=== PATIENT | male | born 1985 | race Caucasian/White ===

== ENCOUNTER → 2018-06-13 13:02 | Outpatient (CLI) | payer OTHER, SELFPAY ==
--- NOTE | 2018-06-13 13:06 | ECHOD_ITS ---
Reason For Study: Bicuspid AV, Aortic insufficiency Procedure This was a 2D Doppler, Color Flow transthoracic echocardiogram. The exam was of adequate technical quality. Exam performed in department. Left Ventricle Normal LV size. Left ventricular systolic function is normal. The estimated ejection fraction is 60 %. Normal diastology for age. No regional wall motion abnormalities noted. Right Ventricle Normal RV size. Normal systolic function. Atria Normal left atrium. Normal right atrium. No doppler evidence for ASD. Mitral Valve There is no mitral annular calcification. Normal mitral valve. Trivial mitral valve insufficiency. Tricuspid Valve Normal tricuspid valve. Mild tricuspid valve insufficiency. Right ventricular systolic pressure estimated to be 22 mmHg. Aortic Valve Bicuspid aortic valve. Mild focal aortic valve calcification. Mild-Moderate (1-2+) eccentric aortic valve insufficiency. Pulmonic Valve The pulmonic valve is not well visualized. Trivial pulmonic valve insufficiency. Pericardium/Pleural No pericardial effusion. MMode/2D Measurements & Calculations LVIDd: 5.5 cm IVSd: 0.80 cm LVOT diam: 2.5 cm LVIDs: 3.3 cm LVPWd: 1.0 cm LVOT area: 4.8 cm2 RVDd: 3.4 cm FS: 41.1 % Ao root diam: 3.7 cm LAV(MOD-bp): 43.9 ml EDV(MOD-sp4): 131.3 ml LAV(MOD-bp) Indexed: 20.8 ml/m2 ESV(MOD-sp4): 54.7 ml LAV(MOD-sp2): 41.7 ml EF(MOD-sp4): 58.3 % LAV(MOD-sp4): 42.4 ml EDV(MOD-sp2): 165.5 ml SV(MOD-sp4): 76.5 ml SV(MOD-sp2): 99.4 ml EF(MOD-sp2): 60.1 % LA dimension(2D): 2.7 cm LA A4 area: 16.7 cm2 RA A4 area: 15.5 cm2 Doppler Measurements & Calculations MV E max adams: 80.0 cm/sec Lat Peak E' Adams: 16.2 cm/sec Med Peak E' Adams: 11.7 cm/sec MV A max adams: 47.9 cm/sec E/E' lat: 4.9 E/E' med: 6.8 MV E/A: 1.7 Ao V2 max: 150.8 cm/sec LV V1 max: 112.6 cm/sec SV(LVOT): 124.5 ml Ao max P.1 mmHg LV V1 max P.1 mmHg Ao V2 mean: 98.1 cm/sec LV V1 mean P.6 mmHg Ao mean P.4 mmHg LV V1 mean: 76.0 cm/sec Ao V2 VTI: 32.4 cm LV V1 VTI: 26.1 cm DONALD(I,D): 3.8 cm2 DONALD(V,D): 3.6 cm2 PA V2 max: 82.8 cm/sec TR max adams: 217.2 cm/sec TR max P.9 mmHg Interpretation Summary Left ventricular systolic function is normal. The estimated ejection fraction is 60 %. Trivial mitral valve insufficiency. Mild tricuspid valve insufficiency. Bicuspid aortic valve. Mild focal aortic valve calcification. Mild-Moderate (1-2+) eccentric aortic valve insufficiency. Trivial pulmonic valve insufficiency. Right ventricular systolic pressure estimated to be 22 mmHg. Normal diastology for age. 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 Ordering Physician: Toy Ramon/Andrzej Sandoval Referring Physician: oTy Ramon Performed By: Amberly Love RDCS
== END ==
PROVIDERS: Referring Provider Nurse Practitioner Family; Visit Provider Nurse Practitioner Family
DX: Q23.1 Congenital insufficiency of aortic valve (principal); Q25.1 Coarctation of aorta
CPT/HCPCS: 93306

== ENCOUNTER → 2019-01-12 | Outpatient (CLI) | payer OTHER, SELFPAY ==
[2019-01-12 08:39] VITALS: BMI 26.7
[2019-01-12 10:34] LABS: Anion Gap 4 (5-15); BUN 17 mg/dL (7-18); BUN/Creat Ratio 19.4 RATIO (10-20); Calcium,Total 9.1 mg/dL (8.5-10.1); Chloride 109 mmol/L (98-107); Creatinine, Serum 0.88 mg/dL (0.70-1.30); EST Glomerular Filtration Rate 105 mL/min (>60); Est Glom Filt Rate - Afr Amer 127 mL/min (>60); Glucose 96 mg/dL (74-106); Sodium Level 138 mmol/L (136-145)
== END | disposition home or self-care (01) ==
LOC: LAB 09:36
PROVIDERS: Referring Provider Physician Assistant Medical; Visit Provider Physician Assistant Medical
DX: R07.89 Other chest pain (principal)
CPT/HCPCS: 36415; 80048

== ENCOUNTER → 2019-01-23 | Outpatient (CLI) | payer OTHER, SELFPAY ==
[2019-01-12 08:39] VITALS: BMI 26.7
--- NOTE | 2019-01-23 07:50 | CT_ITS ---
STUDY: CTA CHEST REASON FOR EXAM: Male, 33 years old. Chest tightness. History of bicuspid aortic valve. RADIATION DOSAGE (If Supplied By Facility): CTDIvol = ( 12.04 ) mGy, DLP = ( 482.52 ) mGycm TECHNIQUE: The examination was performed with the intravenous administration of 100 IV Isovue 370. Post-processing of the angiographic images was performed, with multiplanar reformation and 3D reconstruction. Individualized dose optimization techniques were used for this CT. COMPARISON: July 30, [address] chest June 10, 2014 FINDINGS: Normal enhancement of the main pulmonary artery and right and left pulmonary arteries. Normal enhancement of the bilateral peripheral pulmonary arteries. There is no demonstrated pulmonary embolism. Normal thoracic aorta and visualized great vessels. There is no demonstrated aortic dissection. Normal heart and pericardium. Normal mediastinum. Normal hilar regions. Normal visualized trachea and bronchi. The lungs are well expanded. Normal pulmonary parenchyma. Normal pleura. Normal chest wall structures. Normal osseous structures. Normal visualized upper abdomen. CT/CTA Chest W/WO Contrast IMPRESSION: Normal CTA chest examination, without a demonstrated pulmonary embolism or arterial dissection. Electronically Signed: Sandip Slater MD at 16:53 EDT , Service support ,
== END | disposition home or self-care (01) ==
PROVIDERS: Referring Provider Physician Assistant Medical; Visit Provider Physician Assistant Medical
DX: R07.89 Other chest pain (principal)
CPT/HCPCS: 71275; Q9967

== ENCOUNTER → 2020-11-03 12:55 | Outpatient (CLI) | payer OTHER, SELFPAY ==
[2020-10-15 11:42] VITALS: BMI 28.3
--- NOTE | 2020-11-03 12:58 | ECHOD_ITS ---
Reason For Study: Bicuspid AV Procedure This was a 2D Doppler, Color Flow transthoracic echocardiogram. The study was technically difficult. Exam performed in department. Left Ventricle Normal LV size. Left ventricular systolic function is normal. The estimated ejection fraction is 60 %. No evidence for diastolic dysfunction. No regional wall motion abnormalities noted. Right Ventricle Normal RV size. Normal systolic function. Atria Normal left atrium. Normal right atrium. No doppler evidence for ASD. Mitral Valve There is no mitral annular calcification. Normal mitral valve. Trivial mitral valve insufficiency. Tricuspid Valve Normal tricuspid valve. Trivial tricuspid valve insufficiency. Unable to estimate RV systolic pressure/pulmonary artery pressure due to technically difficult study. Aortic Valve Based upon the 2D echocardiographic images obtained a bicuspid aortic valve with mild focal aortic valve calcification cannot be excluded. Mild (1+) eccentric aortic valve insufficiency. Pulmonic Valve The pulmonic valve is not well visualized. 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 Pericardium/Pleural No pericardial effusion. MMode/2D Measurements & Calculations LVIDd: 5.6 cm IVSd: 0.83 cm LVOT diam: 2.5 cm LVIDs: 3.0 cm LVPWd: 1.2 cm LVOT area: 5.0 cm2 FS: 45.9 % Ao root diam: 3.8 cm LAV(MOD-bp): 37.9 ml LVAd ap4: 35.8 cm2 LA dimension: 3.5 cm LAV(MOD-bp) Indexed: 17.8 ml/m2 EDV(MOD-sp4): 121.2 ml LAV(MOD-sp2): 34.5 ml EDV(sp4-el): 120.1 ml LAV(MOD-sp4): 35.5 ml LVAs ap4: 20.3 cm2 ESV(MOD-sp4): 43.9 ml ESV(sp4-el): 44.1 ml EF(MOD-sp4): 63.8 % EF(sp4-el): 63.3 % SV(MOD-sp4): 77.3 ml SV(sp4-el): 76.0 ml LA A4 area: 15.5 cm2 RA A4 area: 14.5 cm2 Time Measurements MV dec time: 0.25 sec Doppler Measurements & Calculations MV E max adams: 67.2 cm/sec Lat Peak E' Adams: 12.7 cm/sec Med Peak E' Adams: 9.9 cm/sec MV A max adams: 54.0 cm/sec E/E' lat: 5.3 E/E' med: 6.8 MV E/A: 1.2 MV V2 max: 78.3 cm/sec MV P1/2t max adams: 79.6 cm/sec Ao V2 max: 145.1 cm/sec MV max P.5 mmHg MV P1/2t: 61.0 msec Ao max P.4 mmHg MV V2 mean: 44.5 cm/sec Ao V2 mean: 87.7 cm/sec MV mean P.93 mmHg MV dec slope: 382.1 cm/sec2 Ao mean P.6 mmHg MV V2 VTI: 22.2 cm MVA(P1/2t): 3.6 cm2 Ao V2 VTI: 29.2 cm MVA(VTI): 5.7 cm2 DONALD(I,D): 4.4 cm2 DONALD(V,D): 3.9 cm2 LV V1 max: 114.0 cm/sec SV(LVOT): 127.7 ml LV V1 max P.2 mmHg LV V1 mean P.4 mmHg LV V1 mean: 69.9 cm/sec LV V1 VTI: 25.5 cm ECHO/Echo Complete Interpretation Summary The study was technically difficult. Left ventricular systolic function is normal. The estimated ejection fraction is 60 %. Trivial mitral valve insufficiency. Trivial tricuspid valve insufficiency. Based upon the 2D echocardiographic images obtained a bicuspid aortic valve wit h mild focal aortic valve calcification cannot be excluded. Mild (1+) eccentric aortic valve insufficiency. 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 Unable to estimate RV systolic pressure/pulmonary artery pressure due to techni chun difficult study. No evidence for diastolic dysfunction. Ordering Physician: Andrzej Sandoval Referring Physician: Lyle Ceja Performed By: Berry Gunn RCS
== END ==
PROVIDERS: PCP Family Medicine; Referring Provider Internal Medicine Cardiovascular Disease; Visit Provider Internal Medicine Cardiovascular Disease
DX: Q23.1 Congenital insufficiency of aortic valve (principal); Q25.1 Coarctation of aorta; I10 Essential (primary) hypertension
CPT/HCPCS: 93306

== ENCOUNTER 2020-11-21 10:33 | Emergency (ER) | payer OTHER, SELFPAY ==
[2020-10-15 11:42] VITALS: BMI 28.3
[2020-11-21 10:36] VITALS: BP 127/62; PULSE 78; RESP 16; TEMP 36.4; O2SAT 100; BMI 29.5
--- NOTE | 2020-11-21 10:37 | CT_ITS ---
STUDY: CT BRAIN WITHOUT CONTRAST REASON FOR EXAM: Male, 34 years old. Abrasions to the forehead following injury. RADIATION DOSAGE (If Supplied By Facility): CTDIvol = ( 44.99 ) mGy, DLP = ( 779.24 ) mGycm TECHNIQUE: Transaxial CT imaging of the brain was performed without administration of intravenous contrast material. Individualized dose optimization techniques were used for this CT. COMPARISON: Comparison is made with prior study dated 07/30/2015. FINDINGS: Normal soft tissue structures. Normal calvarium. Normal size ventricles and extra-axial spaces for the patient''s age. Normal white matter tracts of the cerebral hemispheres. Normal basal ganglia and thalami. Normal brainstem. Normal cerebellum. There is no intracranial hemorrhage. There are no findings of an acute ischemic infarction. Normal visualized paranasal sinuses. CT/Brain/Head without Contrast IMPRESSION: Normal unenhanced CT scan of the brain. Electronically Signed: Nhan Cerna MD at 11:04 EDT , Service support ,
--- NOTE | 2020-11-21 10:37 | RAD_ITS ---
STUDY: X-RAY - LEFT KNEE REASON FOR EXAM: Male, 34 years old. Pain following trauma. TECHNIQUE: 4 view(s) of the knee. COMPARISON: None. FINDINGS: Normal visualized distal femur. Normal visualized proximal tibia and fibula. Normal proximal tibiofibular articulation. Normal medial femorotibial compartment. Normal lateral femorotibial compartment. Normal patellofemoral articulation. The soft tissue structures are unremarkable. RAD/Knee 4 or More Views IMPRESSION: Normal x-ray examination of the knee. Electronically Signed: Nhan Cerna MD at 11:12 EDT , Service support ,
--- NOTE | 2020-11-21 10:37 | CT_ITS ---
STUDY: CT LUMBAR SPINE WITHOUT CONTRAST REASON FOR EXAM: Male, 34 years old. Lower back pain following injury. RADIATION DOSAGE (If Supplied By Facility): CTDIvol = ( 14.81 ) mGy, DLP = ( 508.13 ) mGycm TECHNIQUE: The patient was scanned in a multi detector CT scanner. High resolution transaxial imaging was performed. Images were obtained from L1 to S1 vertebral level. Sagittal and coronal images were reconstructed. Individualized dose optimization techniques were used for this CT. COMPARISON: None FINDINGS: Normal lumbar lordosis. There is no substantial scoliosis. Normal vertebrae of the lumbar spine. L1-2: Normal endplates. Normal disc height and morphology. Normal bilateral facet joints. Normal central canal and bilateral lateral recesses. Normal bilateral intervertebral neural foramina. L2-3: Normal endplates. Normal disc height and morphology. Normal bilateral facet joints. Normal central canal and bilateral lateral recesses. Normal bilateral intervertebral neural foramina. L3-4: Normal endplates. Normal disc height and morphology. Normal bilateral facet joints. Normal central canal and bilateral lateral recesses. Normal bilateral intervertebral neural foramina. L4-5: Normal endplates. Normal disc height and morphology. Normal bilateral facet joints. Normal central canal and bilateral lateral recesses. Normal bilateral intervertebral neural foramina. L5-S1: Normal endplates. Normal disc height and morphology. Normal bilateral facet joints. Normal central canal and bilateral lateral recesses. Normal bilateral intervertebral neural foramina. Normal visualized paraspinous soft tissue structures. CT/Spine Lumbar without Contrast IMPRESSION: Normal unenhanced CT examination of the lumbar spine. Electronically Signed: Nhan Cerna MD at 11:08 EDT , Service support ,
--- NOTE | 2020-11-21 10:40 | ED.VIS.GEN ---
History of Present Illness Chief Complaint: Head Injury Informant: Patient Onset: Today Context: Sudden Onset Timing: Continuous Current Severity: Moderate Maximum Severity: Moderate Narrative: The patient is a 34-year-old male was otherwise healthy, history of hypertension, who presents to the emergency department injury. Patient was at work. They were unloading ochoa from a semi-. He states that the gait shifted. It landed on top of him. He fell to the ground. He struck the right side of his head, right posterior shoulder, and right hip and low back. He also landed with his knees twisted underneath him. He did not lose consciousness, but states that he felt lightheaded. He is on baby aspirin daily. He is unsure of his last tetanus. He states the bulk of his pain is in his low back on the right side. Prior similar symptoms: No Recent Illness/Hospitalization: No Past Medical History - Allergies and Home Meds Allergies/Adverse Reactions: Allergies No Known Allergies Allergy (Verified 10/15/20 11:42) Primary Care Physician: [facility] [GROUP OF PHYSICIANS] - Varun Lizama DO [STAFF PHYSICIAN] - Prior records reviewed: Yes Past Medical History: - - Hypertension, bicuspid aortic valve Surgical History: noncontributory Smoking Status: Never smoker Review of Systems General: Denies: Chills, Fever, Sweats Eyes: Denies: Visual changes - bilaterally, Diplopia ENT: Denies: Rhinorrhea, Sore throat Cardiovascular: Denies: Chest pain, Palpitations Respiratory: Denies: Dyspnea, Cough, Dyspnea on exertion Gastrointestinal: Denies: Abdominal pain, Nausea, Vomiting, Diarrhea, Melena, Hematochezia Genitourinary: Denies: Dysuria, Hematuria, Frequency Musculoskeletal: Denies: Back pain, Extremity Pain Skin: Denies: Rash, Wounds Neurological: Denies: Headache, Weakness, Numbness Physical Exam Inital Vital Signs reviewed: Yes General: Well nourished, Well developed, No Acute Distress Head: Normocephalic, Trauma - Superficial abrasion of the upper right forehead. Midface stable. Eyes: Perrl, EOMI ENT: Moist mucous membranes, No rhinorrhea Neck: Supple, Nontender Cardiovascular: Regular rate, Regular rhythm, No murmurs Respiratory: No distress, CTA bilaterally, Chest tenderness - Mild tenderness in the posterior left chest with abrasion. No step-off. Abdomen: Soft, Nontender, Nondistended, Normal bowel sounds Back: Normal Inspection, - - Tender in the right lower lumbar spine. No step-off. Extremities: No edema, Tenderness - Superficial abrasion over right wrist with full range of motion. Abrasion over left knee with tenderness palpation, but extension preserved. Skin: Normal color, No rash Neurological: Alert, Oriented x3, Cranial nerves II-XII grossly intact, Normal Strength, Normal Sensation Psychological: Normal affect, Normal Mood Diagnostic/Tx/Re-eval Clinical Impression(s) from Imaging Studies Brain CT 11/21/20 10:37 IMPRESSION: Normal unenhanced CT scan of the brain. Electronically Signed: Nhan Cerna MD at 11:04 EDT , Service support , Knee X-Ray 11/21/20 10:37 IMPRESSION: Normal x-ray examination of the knee. Electronically Signed: Nhan Cerna MD at 11:12 EDT , Service support , Lumbar Spine CT 11/21/20 10:37 IMPRESSION: Normal unenhanced CT examination of the lumbar spine. Electronically Signed: Nhan Cerna MD at 11:08 EDT , Service support , ADDENDUM: 11/21/20 1132 Chest X-Ray 11/21/20 10:55 IMPRESSION: Normal x-ray examination of the chest. Electronically Signed: Nhan Cerna MD at 11:13 EDT , Service support , - Medical Decision Making Patient presents after work-related trauma. He struck his head but did not lose consciousness. He is very well-appearing. He does have a 0.5 cm laceration of the forehead with no active bleeding. His tetanus is updated. He was given analgesics. He underwent CT of the brain. This was unremarkable for acute process. He underwent CT of the lumbar spine. I did review this, and it was read as negative. However on my review it does appear that he has a nondisplaced transverse process fracture on the right at L5. I did discuss this with the radiologist who agrees. Chest x-ray was unremarkable. Knee x-ray was unremarkable. Patient is feeling mildly better. His small laceration was glued without issue. At this point, he will be placed on work restrictions, given analgesics, and appropriate outpatient follow-up. He is comfortable with this plan of care. Impression 1. 0.5 cm facial laceration 2. L5 right nondisplaced transverse process fracture 3. Right wrist abrasion 4. Left posterior thoracic contusion 5. Left knee abrasion ED Disposition - Plan for ED Patient: Instructions: ED Scalp Contusion, ED Transverse Process Fracture Prescriptions: Hydrocodone Bitart/Apap 5-325 [[place] 5MG-325MG] 1 tablet PO Q6H PRN PRN 5 Days #16 tab PRN Reason: Pain Prescription Printed Referrals: Varun Lizama DO [STAFF PHYSICIAN] - [facility] [GROUP OF PHYSICIANS] -
[2020-11-21] MEDS: HYDROcodone Bitartrate/Apap 5/325 Tablet PO (10:46)
--- NOTE | 2020-11-21 10:55 | RAD_ITS ---
STUDY: X-RAY CHEST REASON FOR EXAM: Male, 34 years old. Trauma TECHNIQUE: Single AP portable view of the chest. COMPARISON: Comparison is made with prior study dated 07/30/2015. FINDINGS: Surgical clips are seen in the medial left lung apex. The lungs are clear and expanded. There is no demonstrated pleural abnormality. Normal size heart. Normal mediastinum and jazzy. Normal visualized pulmonary arteries. Normal visualized aortic arch and descending thoracic aorta. Normal visualized thoracic spine. Normal visualized ribs, clavicles, and shoulders. There is no demonstrated abnormality of the visualized soft tissue structures of the upper abdomen. RAD/Chest 1 View (Portable) IMPRESSION: Normal x-ray examination of the chest. Electronically Signed: Nhan Cerna MD at 11:13 EDT , Service support ,
[2020-11-21] MEDS: Diphth,Pertuss(Acell),Tet Vac 0.5 ML Vial IM (11:38)
[2020-11-21 11:41] VITALS: BP 130/66; PULSE 62; RESP 17; O2SAT 99
[2020-11-21 11:43] VITALS: O2SAT 100
[2020-11-21] MEDS: fentaNYL 100 MCG/2 ML Ampul 50 MCG IV (13:00)
[2020-11-21 13:37] VITALS: BP 153/55; PULSE 74; RESP 16
== END 2020-11-21 13:38 | disposition home or self-care (01) ==
PROVIDERS: Emergency Provider Emergency Medicine; PCP Family Medicine
DX: S32.059A Unspecified fracture of fifth lumbar vertebra, initial encounter for closed fracture (principal); S01.81XA Laceration without foreign body of other part of head, initial encounter; S60.811A Abrasion of right wrist, initial encounter; S80.212A Abrasion, left knee, initial encounter; S20.312A Abrasion of left front wall of thorax, initial encounter; W22.8XXA Striking against or struck by other objects, initial encounter; Y93.9 Activity, unspecified; Y92.9 Unspecified place or not applicable; I10 Essential (primary) hypertension; Q23.1 Congenital insufficiency of aortic valve; Z79.82 Long term (current) use of aspirin; Z79.899 Other long term (current) drug therapy
CPT/HCPCS: 70450; 71045; 72131; 73564; 90715; 96374; 99285

== ENCOUNTER 2020-12-03 09:16 | Emergency (ER) | payer OTHER, SELFPAY ==
[2020-12-03 09:17] VITALS: BP 131/81; PULSE 89; RESP 15; TEMP 36.6; O2SAT 97; BMI 27.1
[2020-12-03 09:49] VITALS: BP 131/81; PULSE 89; RESP 16; TEMP 36.6; O2SAT 97
--- NOTE | 2020-12-03 10:27 | CT_ITS ---
STUDY: CT ABDOMEN AND PELVIS WITH CONTRAST REASON FOR EXAM: Male, 34 years old. Right-sided abdominal pain following recent injury. RADIATION DOSAGE (If Supplied By Facility): CTDIvol = ( 12.71 ) mGy, DLP = ( 971.28 ) mGycm TECHNIQUE: Transaxial images were obtained from the dome of the diaphragm to the symphysis pubis without oral contrast. IV 100mL Isovue-370 was administered. Sagittal and coronal images were reconstructed. Individualized dose optimization techniques were used for this CT. COMPARISON: None. FINDINGS: The visualized lung bases are unremarkable. The visualized portions of the heart are within normal limits. Normal liver. Normal gallbladder and extrahepatic biliary system. There are multiple benign calcified granulomata of the spleen. Normal pancreas. Normal bilateral adrenal glands. Normal right kidney. Normal left kidney. Normal visualized stomach. Normal small intestine. Normal colon. The appendix is visualized and appears normal. Normal abdominal aorta. Normal inferior vena cava. There is borderline retroperitoneal lymphadenopathy with enlarged nodes no greater than 10mm in the short axis diameter. Normal urinary bladder. Small amount of free fluid is seen in the pelvis. There now is evidence of a 6.3 cm x 6.4 cm x 8.1 cm hypodense soft tissue swelling in the lower right flank extending into the region of the right iliac bone. The attenuation measures 26. This may represent a resolving hematoma. This extends into the right iliopsoas muscle. Stable appearance of the nondisplaced fracture of the lateral aspect of the transverse processes of the right L5 vertebrae. Small bone island in the right iliac bone. CT/Abdomen/Pelvis W IV Cont ONLY IMPRESSION: Findings suggestive of resolving hematoma measuring 6.3 cm x 6.4 size by 8.1 cm in the lower right flank area extending to the region of the right iliac bone and right iliopsoas muscle. Small amount of free fluid is seen in the pelvis. Stable nondisplaced fracture along the lateral aspect of the transverse processes of the L5 vertebrae on the right side. Electronically Signed: Nhan Cerna MD at 12:10 EDT , Service support ,
--- NOTE | 2020-12-03 10:31 | EX.ED.DYSGE1 ---
HPI History of Present Illness Chief Complaint: Edema Detail of Chief Complaint: Right flank swelling and bruising Informant: patient Onset/Context/Timing Onset: Days (12) Context: Gradual Onset Timing: Continuous Quality: Aching Location: Right abdomen and right flank Worsened by: Standing Relieved by: Lying down Associated Symptoms Associated Symptoms: Nausea Narrative Narrative: Patient presents with right-sided abdominal and flank pain that is been getting worse over the past 12 days. Patient states it has gradually gotten worse. Patient states that 12 days ago he had an accident where several heavy weights fell onto his back. Patient states he had fractures of his transverse process at that time. Patient states that he has noted increased swelling to his right side along with some bruising. Patient admits to nausea but denies any vomiting. Patient also admits to some subjective chills but denies any fevers. [facility] Medical History Bicuspid aortic valve Essential (primary) hypertension Home Medications lisinopril 20 mg tablet 20 mg PO QDAY 90 Days #90 tab 07/26/17 [History Last Taken Unknown] nifedipine 30 mg tablet,extended release 24 hr 30 mg PO QDAY 90 Days #90 tab 07/26/17 [History Last Taken Unknown] aspirin 325 mg tablet 325 mg PO DAILY 10/15/20 [History Last Taken Unknown] Allergy/AdvReac Type Severity Reaction Status Date / Time No Known Allergies Allergy Verified 10/15/20 11:42 Surgical History Coarctation of aorta H/O right heart catheterization Pectus carinatum Social History Smoking Status: Never smoker alcohol intake: current alcohol intake frequency: a few times a week Alcohol type: beer substance use type: does not use caffeine: No what type of physical activity do you participate in: none seatbelt use: always do you feel safe at home: Yes ROS ROS ED Constitutional Constitutional ED: Reports chills and subjective; Denies fever(s) Eyes Eyes: Denies blurry vision or change in vision ENT ENT ED: Denies rhinorrhea or sore throat Cardiovascular Cardiovascular: Denies chest pain or palpitations Respiratory/Chest Respiratory/Chest: Denies cough or dyspnea Gastrointestinal Gastrointestinal: Reports nausea; Denies vomiting Genitourinary Genitourinary ED: Denies dysuria or hematuria Musculoskeletal Musculoskeletal: Reports back pain; Denies neck pain Integumentary Denies abscess or rash Neurologic Neurologic: Denies headache(s) or weakness Allergic/Immunologic Allergic/Immunologic ED: Denies mouth swelling or urticaria EXAM Physical Exam Const Vital Signs: 12/03/20 09:17 12/03/20 09:49 Temperature 97.8 F 97.8 F Temperature Source Temporal Oral Pulse Rate 89 89 Respiratory Rate 15 16 Respiratory Effort Normal Non-Labored Respiratory Pattern Normal Blood Pressure 131/81 H 131/81 H Blood Pressure Mean 97 97 Pulse Ox 97 97 Oxygen Delivery Method Room Air Room Air Positive well nourished and well developed General Appearance ED: well developed HEENT Reports moist mucous membranes Resp normal respiratory effort and clear to auscultation bilaterally Cardio regular rate and regular rhythm GI non-distended GI Narrative: There is also some right flank tenderness, edema, and ecchymosis. There is also some right inguinal tenderness. Palpation: soft and tender RLQ and RUQ Bladder / Kidney Exam: other Neuro oriented x3, CN's II-XII intact bilaterally and no sensory deficits noted Sensorium / Orientation: alert Motor Exam: strength 5/5 throughout MDM MDM MDM Narrative Medical decision making narrative: CBC, comprehensive metabolic profile, lipase, and urinalysis were obtained were all within normal limits. CT scan of the abdomen pelvis with IV contrast was obtained. The hematoma is resolving. There is no new acute process noted. Patient is resting comfortably on reevaluation. Patient was advised of his findings. Patient was instructed to use ice to the area. Patient was instructed to follow-up with his primary care physician in 5 to 7 days. Patient understood and was agreeable with the plan. All questions were answered. Lab Data Attestation: I reviewed the patient's lab results. Labs: Laboratory Results - last 24 hr 12/03/20 12/03/20 12/03/20 10:54 10:54 12:05 WBC 8.2 RBC 4.50 L Hgb 13.1 Hct 40.6 MCV 90.2 MCH 29.1 MCHC 32.3 RDW Std Deviation 43.8 RDW Coeff of Layla 13.4 Plt Count 411 MPV 10.0 Immature Gran % (Auto) 0.200 Neut % (Auto) 69.8 Lymph % (Auto) 18.6 L [place] % (Auto) 6.7 Eos % (Auto) 3.7 Baso % (Auto) 1.0 Absolute Neuts (auto) 5.7 Absolute Lymphs (auto) 1.52 Nucleated RBC % 0 Sodium 138 Potassium 4.1 Chloride 107 Carbon Dioxide 28.0 Anion Gap 3 L BUN 16 Creatinine 0.74 Estim Creat Clear Calc 151.47 Est GFR (MDRD) Af Amer 153 Est GFR (MDRD) Non-Af 127 BUN/Creatinine Ratio 21.7 H Glucose 87 Calcium 9.4 Total Bilirubin 0.60 AST 28 ALT 81 H Alkaline Phosphatase 85 Total Protein 7.5 Albumin 4.2 Globulin 3.3 Albumin/Globulin Ratio 1.3 Lipase 61 L Urine Color Yellow Urine Clarity Clear Urine pH 6.5 Ur Specific [place] 1.010 Urine Protein Negative Urine Glucose (UA) Normal Urine Ketones Negative Urine Occult Blood Negative Urine Nitrite Negative Urine Bilirubin Negative Urine Urobilinogen Normal Ur Leukocyte Esterase Negative Urine RBC 0 SEEN Urine WBC 0 SEEN Ur Squamous Epith Cells 0 SEEN Urine Bacteria 0 SEEN Urine Mucus 0 SEEN Radiography Diagnostic Testing: Radiology Impression Abdomen/Pelvis CT 12/03/20 10:27 IMPRESSION: Findings suggestive of resolving hematoma measuring 6.3 cm x 6.4 size by 8.1 cm in the lower right flank area extending to the region of the right iliac bone and right iliopsoas muscle. Small amount of free fluid is seen in the pelvis. Stable nondisplaced fracture along the lateral aspect of the transverse processes of the L5 vertebrae on the right side. Electronically Signed: Nhan Cerna MD at 12:10 EDT , Service support , Discharge Plan Triage Chief Complaint: Edema ED Provider: Sarwat Hameed Dx/Rx/DC Orders Clinical Impression: Right flank hematoma Instructions: ED Hematoma Prescriptions: No Action nifedipine 30 mg tablet extended release 24 hr 30 mg PO QDAY 90 Days Qty: 90 RF: 0 lisinopril 20 mg tablet 20 mg PO QDAY 90 Days Qty: 90 RF: 0 aspirin 325 mg tablet 325 mg PO DAILY RF: 0 Primary Care Provider: Lyle Ceja Referrals: Lyle Ceja MD [Primary Care Provider] - 5-7 Days Disposition Disposition: Home, self care
[2020-12-03] MEDS: 0.9% Normal Saline 1,000 ML 1000 ML IV (10:54)
[2020-12-03 11:04] LABS: Absolute Lymphocyte Count 1.52 X10^3/uL (0.83-4.51); Absolute Neutrophil Count 5.7 X10^3/uL (2.0-7.7); Basophil# 0.08 X10^3/uL; Eosinophils% 3.7 % (0-5); Hematocrit 40.6 % (40-54); Hemoglobin 13.1 g/dL (13.0-16.5); Lymphocyte # 1.52 X10^3/ul (0.83-4.51); Lymphocyte % 18.6 % (19-41); Mean Corp Hgb Conc 32.3 g/dL (32-36); Mean Corpuscular Hgb 29.1 pg (27.0-32.0); Mean Corpuscular Volume 90.2 fL (80-94); Monocyte# 0.55 X10^3/uL; Monocyte% 6.7 % (0-10); NRBC Flagged by Analyzer 0 % (0-5); Neutrophil % 69.8 % (47-70); Platelet Count 411 K/mm3 (150-450); RBC Distribution Width CV 13.4 % (11.6-14.6); RBC Distribution Width SD 43.8 fl (35.1-43.9); White Blood Count 8.2 K/mm3 (4.4-11.0)
[2020-12-03 11:20] LABS: ALB/GLOB Ratio 1.3 RATIO (0.9-2.4); AST(SGOT) 28 U/L (15-37); Alanine Aminotransfer ALT/SGPT 81 U/L (16-61); Albumin, Serum 4.2 g/dL (3.2-5.0); Alkaline Phosphatase 85 U/L (45-117); Anion Gap 3 (5-15); BUN 16 mg/dL (7-18); BUN/Creat Ratio 21.7 RATIO (10-20); Calcium,Total 9.4 mg/dL (8.5-10.1); Chloride 107 mmol/L (98-107); Creatinine, Serum 0.74 mg/dL (0.70-1.30); EST Glomerular Filtration Rate 127 mL/min (>60); Est Glom Filt Rate - Afr Amer 153 mL/min (>60); Estimated Creatinine Clearance 151.47 ml/min; Globulin 3.3 g/dL (2.2-4.2); Glucose 87 mg/dL (74-106); Lipase 61 U/L (73-393); Potassium 4.1 mmol/L (3.5-5.1); Protein, Total 7.5 g/dL (6.4-8.2); Sodium Level 138 mmol/L (136-145)
[2020-12-03 12:12] LABS: Bacteria 0 SEEN /hpf (None Seen); Mucous, Urine 0 SEEN /hpf (<or=2+); Red Blood Cells-Urine 0 SEEN /hpf (0-5); Squamous Epithelial Cells - UA 0 SEEN /hpf (0-5); White Blood Cells 0 SEEN /hpf (0-5)
[2020-12-03 12:24] LABS: Color, Urine Yellow (Yellow); Glucose, Dipstick Normal (Normal); Ketone-Dipstick Negative (Negative); Leukocyte Esterase-Dipstick Negative /ul (Negative); Nitrite-Dipstick Negative (Negative); Occult Blood-Urine Negative /ul (Negative); Protein-Dipstick Negative (Negative); Urine Bilirubin Dipstick Negative (Negative); Urine Clarity Clear (Clear); Urine Urobilinogen Normal (Normal); Urine pH 6.5 (5.0 - 8.0)
[2020-12-03 13:09] VITALS: BP 150/73; PULSE 90; RESP 16; O2SAT 99
== END 2020-12-03 13:10 | disposition home or self-care (01) ==
PROVIDERS: Emergency Provider Emergency Medicine; PCP Family Medicine
DX: S30.1XXA Contusion of abdominal wall, initial encounter (principal); W22.8XXA Striking against or struck by other objects, initial encounter; Y93.9 Activity, unspecified; Y92.9 Unspecified place or not applicable; I10 Essential (primary) hypertension; Q23.1 Congenital insufficiency of aortic valve; Z79.82 Long term (current) use of aspirin; Z79.899 Other long term (current) drug therapy
CPT/HCPCS: 74177; 80053; 81001; 83690; 85025; 96360; 96361; 99283; J7030; Q9967; A4216

== ENCOUNTER → 2020-12-15 16:13 | Outpatient (CLI) | payer OTHER, SELFPAY ==
[2020-12-03 09:17] VITALS: BMI 27.1
--- NOTE | 2020-12-15 16:15 | MRI_ITS ---
STUDY: MRI LUMBAR SPINE WITHOUT CONTRAST REASON FOR EXAM: Male, 35 years old. IN[facility]URY -- [facility] APPROVED TECHNIQUE: Standardized fat and water weighted pulse sequences were obtained in the sagittal and axial planes. COMPARISON: None FINDINGS: T12-L1: Normal endplates. Normal disc height, hydration and morphology. Normal bilateral facet joints. Normal central canal and bilateral lateral recesses. Normal bilateral intervertebral neural foramina. Normal lumbar lordosis. There is no substantial scoliosis. Normal conus medullaris that terminates at L1 L1-2: Normal endplates. Normal disc height, hydration and morphology. Normal bilateral facet joints. Normal central canal and bilateral lateral recesses. Normal bilateral intervertebral neural foramina. L2-3: Normal endplates. Normal disc height, hydration and morphology. Normal bilateral facet joints. Normal central canal and bilateral lateral recesses. Normal bilateral intervertebral neural foramina. L3-4: Normal endplates. Normal disc height, hydration and minimal annular bulge. Normal bilateral facet joints. Normal central canal and bilateral lateral recesses. Normal bilateral intervertebral neural foramina. L4-5: Normal endplates. Normal disc height, hydration and minimal annular bulge. Normal bilateral facet joints. Normal central canal and bilateral lateral recesses. Normal bilateral intervertebral neural foramina. L5-S1: There is a minimally displaced fracture of the right transverse process of L5 with minimal residual bone marrow edema at this time. Normal endplates. Normal disc height, hydration and morphology. Normal bilateral facet joints. Normal central canal and bilateral lateral recesses. Normal bilateral intervertebral neural foramina. Normal visualized sacral ala. Normal visualized paraspinous soft tissue structures. MRI/Spine Lumbar (Routine) IMPRESSION: Minimally displaced right transverse process of L5 with minimal residual bone marrow edema. No evidence for acute fracture at this time. Minimal bulging of the annuli at L3-4 and L4-5 without evidence for spinal stenosis Electronically Signed: Maxx Blue MD at 21:02 EDT , Service support ,
== END ==
PROVIDERS: PCP Family Medicine; Referring Provider Orthopaedic Surgery; Visit Provider Orthopaedic Surgery
DX: S32.059A Unspecified fracture of fifth lumbar vertebra, initial encounter for closed fracture (principal)
CPT/HCPCS: 72148

== ENCOUNTER → 2022-08-27 | Outpatient (CLI) | payer BC, SELFPAY ==
--- NOTE | 2022-08-27 08:50 | ECHOD_ITS ---
Reason For Study: Bicuspid AV Procedure This was a 2D Doppler, Color Flow transthoracic echocardiogram. The study was technically difficult. Exam performed in department. Left Ventricle Normal LV size. Left ventricular systolic function is normal. The estimated ejection fraction is 65 %. No evidence for diastolic dysfunction. No regional wall motion abnormalities noted. Right Ventricle Normal RV size. Normal systolic function. Atria Normal left atrium. Normal right atrium. Prominent eustachian valve. No doppler evidence for ASD. Mitral Valve There is no mitral annular calcification. Normal mitral valve. Trivial mitral valve insufficiency. Tricuspid Valve Normal tricuspid valve. Trivial tricuspid valve insufficiency. Right ventricular systolic pressure estimated to be 24 mmHg. Aortic Valve Bicuspid aortic valve. Mild focal aortic valve calcification. Mild (1+) eccentric aortic valve insufficiency. Pulmonic Valve Normal pulmonic valve. Trivial pulmonic valve insufficiency. Great Vessels 2D echocardiographic images of the aortic arch with spectral Doppler demonstrating a peak velocity of 2.2 m/s compatible to peak gradient of approximately 19 mmHg. Pericardium/Pleural No pericardial effusion. MMode/2D Measurements & Calculations LVIDd: 5.3 cm IVSd: 0.76 cm LVOT diam: 2.5 cm LVIDs: 3.0 cm LVPWd: 1.0 cm LVOT area: 5.0 cm2 RVDd: 3.1 cm FS: 42.3 % Ao root diam: 3.7 cm LAV(MOD-bp): 32.8 ml LVAd ap4: 37.9 cm2 LAV(MOD-bp) Indexed: 15.6 ml/m2 LVLd ap4: 9.2 cm LAV(MOD-sp2): 49.6 ml EDV(MOD-sp4): 128.5 ml LAV(MOD-sp4): 21.3 ml EDV(sp4-el): 131.9 ml LVAs ap4: 21.3 cm2 LVLs ap4: 8.0 cm ESV(MOD-sp4): 47.7 ml ESV(sp4-el): 48.0 ml EF(MOD-sp4): 62.8 % EF(sp4-el): 63.6 % LVAd ap2: 41.9 cm2 SV(MOD-sp4): 80.8 ml SV(MOD-sp2): 96.8 ml LVLd ap2: 9.4 cm EDV(MOD-sp2): 158.4 ml EDV(sp2-el): 159.5 ml LVAs ap2: 24.8 cm2 LVLs ap2: 8.3 cm ESV(MOD-sp2): 61.6 ml ESV(sp2-el): 62.7 ml EF(MOD-sp2): 61.1 % SV(sp4-el): 83.9 ml LA dimension(2D): 2.6 cm LA A4 area: 11.0 cm2 RA A4 area: 15.2 cm2 Doppler Measurements & Calculations MV E max adams: 78.7 cm/sec Lat Peak E' Adams: 10.9 cm/sec Med Peak E' Adams: 8.2 cm/sec MV A max adams: 61.9 cm/sec E/E' lat: 7.3 E/E' med: 9.6 MV E/A: 1.3 Ao V2 max: 161.9 cm/sec LV V1 max: 118.1 cm/sec SV(LVOT): 134.4 ml Ao max P.5 mmHg LV V1 max P.6 mmHg Ao V2 mean: 115.2 cm/sec LV V1 mean P.0 mmHg Ao mean P.0 mmHg LV V1 mean: 80.7 cm/sec Ao V2 VTI: 38.5 cm LV V1 VTI: 27.0 cm AV (velocity ratio): 0.70 DONALD(I,D): 3.5 cm2 DONALD(V,D): 3.6 cm2 TR max adams: 230.4 cm/sec TR max P.2 mmHg ECHO/Echo Complete Interpretation Summary The study was technically difficult. Left ventricular systolic function is normal. The estimated ejection fraction is 65 %. Prominent eustachian valve. Trivial mitral valve insufficiency. Trivial tricuspid valve insufficiency. Bicuspid aortic valve. Mild focal aortic valve calcification. Mild (1+) eccentric aortic valve insufficiency. Trivial pulmonic valve insufficiency. 2D echocardiographic images of the aortic arch with spectral Doppler demonstrat ing a peak velocity of 2.2 m/s compatible to peak gradient of approximately 19 mmHg. Right ventricular systolic pressure estimated to be 24 mmHg. No evidence for diastolic dysfunction. Ordering Physician: Andrzej Sandoval Referring Physician: Lyle Ceja Performed By: Amberly Love RDCS
== END | disposition home or self-care (01) ==
PROVIDERS: PCP Family Medicine; Visit Provider Internal Medicine Cardiovascular Disease
DX: I10 Essential (primary) hypertension (principal); Q67.7 Pectus carinatum; Q25.1 Coarctation of aorta; Q23.1 Congenital insufficiency of aortic valve
CPT/HCPCS: 93306

== ENCOUNTER → 2025-01-21 | Outpatient (CLI) | payer BC, SELFPAY ==
[2025-01-22 15:51] LABS: Cholesterol 169 mg/dL (<=200); High Density Lipoprotein 63 mg/dL; Low Density Lipoprotein Calc. 91 mg/dL; Triglycerides 76 mg/dL; Very Low Density Lipoprotein 15 mg/dL (5-40); cholesterol:hdl ratio screen 2.67
[2025-01-22 15:58] LABS: ALB/GLOB Ratio 2.1 RATIO (0.9-2.4); AST(SGOT) 19 U/L (<=37); Alanine Aminotransfer ALT/SGPT 13 U/L (<=46); Albumin, Serum 4.6 g/dL (3.5-5.0); Alkaline Phosphatase 74 U/L (40-129); Anion Gap 11 (5-15); BUN 17 mg/dL (4-19); BUN/Creat Ratio 18.5 RATIO (10-20); Calcium,Total 9.2 mg/dL (7.6-11.0); Carbon Dioxide 21.9 mmol/L (21.0-32.0); Chloride 104 mmol/L (98-108); Creatinine, Serum 0.92 mg/dL (0.70-1.20); EST Glomerular Filtration Rate 107 (>60); Globulin 2.2 g/dL (2.2-4.2); Glucose 94 mg/dL (70-99); Potassium 4.3 mmol/L (3.3-5.1); Protein, Total 6.8 g/dL (5.9-8.4); Sodium Level 137 mmol/L (133-145); Total Bilirubin 0.53 mg/dL (0.00-1.30)
== END | disposition home or self-care (01) ==
LOC: LAB 08:36
PROVIDERS: PCP Family Medicine; Referring Provider Nurse Practitioner Family; Visit Provider Nurse Practitioner Family
DX: I10 Essential (primary) hypertension (principal); Q23.1 Congenital insufficiency of aortic valve; Q25.1 Coarctation of aorta; Q67.7 Pectus carinatum
CPT/HCPCS: 36415; 80053; 80061

== ENCOUNTER → 2025-03-14 | Outpatient (CLI) | payer BC, SELFPAY ==
--- NOTE | 2025-03-14 07:52 | ECHOD_ITS ---
Reason For Study Reason For Study: AORTIC VALVE DISEASE Procedure This was a 2D Doppler, Color Flow transthoracic echocardiogram. Exam performed in department. Left Ventricle Normal LV size. Left ventricular systolic function is normal. The left ventricular ejection fraction is 60 %. No regional wall motion abnormalities noted. Right Ventricle Normal RV size. Normal systolic function. Atria Normal left atrium. Normal right atrium. Mitral Valve Normal mitral valve. Mild (1+) eccentric mitral valve insufficiency. Tricuspid Valve Normal tricuspid valve. Mild tricuspid valve insufficiency. Pulmonary artery systolic pressure is 26 mmHg. Aortic Valve Bicuspid aortic valve. Pulmonic Valve Normal pulmonic valve. Great Vessels Normal aortic root. The pulmonary artery is normal size. Inferior vena cava collapse with respiration. Pericardium/Pleural No pericardial effusion. MMode/2D Measurements & Calculations LVIDd: 5.5 cm IVSd: 0.79 cm LVOT diam: 2.5 cm LVIDs: 3.6 cm LVPWd: 1.0 cm LVOT area: 4.7 cm2 RVDd: 3.7 cm FS: 35.5 % Ao root diam: 3.7 cm LAV(MOD-bp): 53.4 ml LVAd ap4: 39.1 cm2 LAV(MOD-bp) Indexed: 25.1 ml/m2 LVLd ap4: 8.9 cm LAV(MOD-sp2): 53.7 ml EDV(MOD-sp4): 141.3 ml LAV(MOD-sp4): 48.6 ml EDV(sp4-el): 145.5 ml LVAs ap4: 21.9 cm2 LVLs ap4: 7.5 cm ESV(MOD-sp4): 53.1 ml ESV(sp4-el): 54.2 ml EF(MOD-sp4): 62.4 % EF(sp4-el): 62.7 % SV(MOD-sp4): 88.2 ml SV(sp4-el): 91.2 ml LA A4 area: 17.9 cm2 SI(MOD-sp4): 41.4 ml/m2 LA dimension(2D): 2.8 cm RA A4 area: 15.9 cm2 TAPSE: 2.4 cm Time Measurements MV dec time: 0.20 sec Doppler Measurements & Calculations MV E max adams: 92.6 cm/sec Lat Peak E' Adams: 15.4 cm/sec Med Peak E' Adams: 14.2 cm/sec MV A max adams: 68.6 cm/sec E/E' lat: 6.0 E/E' med: 6.5 MV E/A: 1.3 Ao V2 max: 169.1 cm/sec LV V1 max: 113.0 cm/sec SV(LVOT): 135.8 ml Ao max P.4 mmHg LV V1 max P.1 mmHg Ao V2 mean: 122.9 cm/sec LV V1 mean P.7 mmHg Ao mean P.7 mmHg LV V1 mean: 76.0 cm/sec Ao V2 VTI: 44.2 cm LV V1 VTI: 28.8 cm AV (velocity ratio): 0.65 DONALD(I,D): 3.1 cm2 DONALD(V,D): 3.2 cm2 PA V2 max: 79.1 cm/sec TR max adams: 241.6 cm/sec TR max P.4 mmHg ECHO/Echo Complete Interpretation Summary Normal LV size. Left ventricular systolic function is normal. The left ventricular ejection fraction is 60 %. Mild (1+) eccentric mitral valve insufficiency. Bicuspid aortic valve. Pulmonary artery systolic pressure is 26 mmHg. Ordering Physician: Toy Ramon Referring Physician: ARTURO PRICE Performed By: Kalina Sears RDCS
== END | disposition home or self-care (01) ==
LOC: CVS 07:51
PROVIDERS: PCP Family Medicine; Referring Provider Nurse Practitioner Family; Visit Provider Nurse Practitioner Family
DX: Q25.1 Coarctation of aorta (principal); Q23.1 Congenital insufficiency of aortic valve; I10 Essential (primary) hypertension
CPT/HCPCS: 93306